=== PATIENT | male | born 1965 | race Caucasian/White ===

== ENCOUNTER → 2021-04-06 01:48 | Outpatient (CLI) | payer OTHER, SELFPAY ==
[2021-04-06 17:52] LABS: SARS-CoV-2 RNA PCR Negative
== END ==
PROVIDERS: PCP Family Medicine; Visit Provider Internal Medicine Gastroenterology
DX: Z01.812 Encounter for preprocedural laboratory examination (principal); Z20.822 Contact with and (suspected) exposure to COVID-19
CPT/HCPCS: C9803; U0003; U0005

== ENCOUNTER 2021-04-09 01:34 | Day surgery (SDC) | payer OTHER, SELFPAY ==
[2021-03-31 12:20] VITALS: BMI 36.4
[2021-04-09 07:39] VITALS: BP 134/98; PULSE 97; RESP 22; TEMP 36.3; O2SAT 98; BMI 36.2
[2021-04-09] MEDS: LACTATED RINGERS 1,000 ML 150 ML IV CONT (07:52)
[2021-04-09 07:55] LABS: Glucose Point of Care 164 mg/dl (65-105)
--- NOTE | 2021-04-09 08:11 | PM.HPGS ---
History of Present Illness History of Present Illness Consent: Risks, benefits, and alternatives have been discussed and questions answered. Patient agrees to proceed with procedure. Chief complaint: neoplasm screening Narrative: Keshawn Brown is a 55 year old male here for first screening colonoscopy Review of Systems Constitutional: Constitutional: Denies headache(s) and Denies weakness Eyes: Eyes: Denies blurry vision ENT: Reports Normal hearing present, Denies headache(s) and Denies neck pain Cardiovascular: Cardiovascular: Denies chest pain and Denies dyspnea Respiratory: Respiratory: Denies dyspnea Gastrointestinal: Gastrointestinal: Reports no additional gastrointestinal complaints Genitourinary: Genitourinary: Denies dysuria Musculoskeletal: Musculoskeletal: Denies neck pain Integumentary/Breasts: Skin/Breast: Denies dry skin Neurologic: Reports Normal hearing present, Denies headache(s) and Denies weakness Psychiatric: Psychiatric: Denies anxiety Endocrine: Endocrine: Denies change in body appearance Hematologic/Lymphatic: Hematologic/Lymphatic: Denies easy bleeding Allergic/Immunologic: Allergic/Immunologic: Denies urticaria PMFSH Past Medical History Medical History (Updated 01/05/21 @ 13:27 by Lyle Marquez MD) Acute bronchitis Acute non-recurrent maxillary sinusitis BMI 38.0-38.9,adult Chronic anxiety Chronic depression Colon cancer screening Elevated fasting glucose Encounter for prostate cancer screening Encounter for wellness examination in adult Erectile dysfunction History of hand fracture Hypersomnia Hypogonadism male Hypothyroidism, unspecified Mild intermittent asthma in adult without complication Mixed hyperlipidemia Morbid obesity with BMI of 40.0-44.9, adult Polycythemia (01/04/21) hemoglobin 18.5 with hematocrit 54.6 on 01/04/2021 likely due to testosterone replacement Primary hypertension Reactive airway disease with wheezing Seasonal allergies Type 2 diabetes mellitus with hyperglycemia (01/04/21) fasting glucose 293 with hemoglobin A1c 12.1 on 12/25/2020 Surgical History Surgical History (Updated 08/13/19 @ 13:14 by Francis Bautista CMA) Hx of cholecystectomy Hx of hand surgery Hx of knee surgery Family History Family History (Updated 08/13/19 @ 13:16 by Francis Bautista CMA) Father Cerebrovascular accident Mother Cerebrovascular accident Grandparent No problems noted. Social History Social History (Updated 12/31/20 @ 13:18 by Yana Hill MA) Smoking status: Never smoker Alcohol intake: current Drinks per week: 1 Alcohol use details: bourbon Substance use: never Substance use type: does not use Living arrangements: with family Spiritual care concerns: No Meds Home Medications and Allergies Home Medications Medication Instructions Recorded Confirmed Type albuterol sulfate 90 mcg/actuation 2 inhalation INHALATION QID PRN gm 10/10/19 03/31/21 History aerosol inhaler fluticasone propionate 50 1 spray NASAL BID #36.4 ml 10/10/19 03/31/21 Rx mcg/actuation nasal spray,suspension escitalopram oxalate 20 mg tablet 20 mg PO DAILY #90 tablet 07/13/20 03/31/21 Rx testosterone cypionate 200 mg/mL 200 mg IM WEEKLY #4 ml 12/21/20 03/31/21 Rx intramuscular oil sildenafil (pulm.hypertension) 20 See Rx Instructions PO ONCE PRN 12/31/20 03/31/21 Rx mg tablet #90 tablet empagliflozin 25 mg tablet 25 mg PO DAILY #30 tablet 01/05/21 03/31/21 Rx levothyroxine 175 mcg tablet 175 mcg PO DAILY #30 tablet 01/05/21 03/31/21 Rx metformin 500 mg tablet,extended 1,000 mg PO BID #120 tablet 01/05/21 03/31/21 Rx release 24hr lisinopril 40 mg tablet 40 mg PO DAILY #30 tablet 01/19/21 03/31/21 Rx atorvastatin 10 mg tablet 10 mg PO DAILY #30 tablet 03/02/21 03/31/21 Rx Allergies Allergy/AdvReac Type Severity Reaction Status Date / Time No Known Allergies Allergy Unknown Ve
[2021-04-09 08:34] VITALS: BP 119/80; PULSE 86; RESP 12; O2SAT 94
[2021-04-09 08:44] VITALS: BP 120/86; PULSE 86; RESP 12; O2SAT 96
[2021-04-09 08:54] VITALS: BP 122/91; PULSE 81; RESP 10; O2SAT 96
== END 2021-04-09 09:12 | disposition home or self-care (01) ==
PROVIDERS: PCP Family Medicine; Visit Provider Internal Medicine Gastroenterology
PROC: 0DJD8ZZ Inspection of Lower Intestinal Tract, Via Natural or Artificial Opening Endoscopic (ICD-10-PCS; CPT 45378; principal; 2021-04-09 08:30)
DX: Z12.11 Encounter for screening for malignant neoplasm of colon (principal); K64.8 Other hemorrhoids; K57.30 Diverticulosis of large intestine without perforation or abscess without bleeding; D12.2 Benign neoplasm of ascending colon; K62.1 Rectal polyp; Z79.84 Long term (current) use of oral hypoglycemic drugs; Z79.51 Long term (current) use of inhaled steroids; F41.8 Other specified anxiety disorders; G47.10 Hypersomnia, unspecified; E03.9 Hypothyroidism, unspecified; E78.2 Mixed hyperlipidemia; J45.909 Unspecified asthma, uncomplicated; D75.1 Secondary polycythemia; E11.65 Type 2 diabetes mellitus with hyperglycemia; E66.9 Obesity, unspecified; Z68.36 Body mass index [BMI] 36.0-36.9, adult
CPT/HCPCS: 45385; 82948; 88305; C9803; J2704; J7120; U0003; U0005

== ENCOUNTER 2024-01-26 20:30 | Emergency (ER) | payer OTHER, SELFPAY ==
[2024-01-26] VITALS (16 sets, daily range): BP systolic 132–152; BP diastolic 93–102; PULSE 112–123; RESP 12–26; O2SAT 93–96
--- NOTE | ~2024-01-26 | CT_ITS ---
EXAMINATION: CT brain wo con DATE: 01/26/2024 22:24 INDICATION: Diffuse right-sided pain post 8-10 foot fall from a ladder. TECHNIQUE: Computed tomography (CT) of the head was performed without intravenous contrast. Sagittal and coronal reconstructions were performed. The mA was adjusted according to patient size. Iterative reconstruction technique was employed. The dose-length product was 681.00 mGy-cm. COMPARISON: None FINDINGS: No fracture. No acute intracranial hemorrhage, acute infarction or abnormal extra axial fluid collect ion. There is mild scattered white matter hypoattenuation consistent with chronic small vessel ischem ic disease. Ventricles are normal and symmetric. No mass/mass effect. Mild to moderate mucosal thick ening the paranasal sinuses with small amount of dependently layering mucus in the left maxillary sin us. The orbits and mastoid air cells are normal. IMPRESSION: 1. No fracture or acute intracranial process. 2. Mild scattered white matter hypoattenuation consistent with chronic small vessel ischemic disease. 3. Sinus disease with small amount of bubbly mucus in the left maxillary sinus suggestive of acute si nusitis. Reviewed, dictated and finalized at location A. IMPRESSION: 1. No fracture or acute intracranial process. 2. Mild scattered white matter hypoattenuation consistent with chronic small ve ssel ischemic disease. 3. Sinus disease with small amount of bubbly mucus in the left maxillary sinus suggestive of acute sinusitis.
--- NOTE | ~2024-01-26 | CT_ITS ---
EXAMINATION: CT chst ab pel elisa reyna w DATE: 01/26/2024 22:26 INDICATION: Right-sided pain post fall from ladder TECHNIQUE: Computed tomography (CT) of the chest, abdomen, pelvis, thoracic and lumbar spine was perf ormed with 100 mL Omnipaque-350 intravenous contrast. Automated exposure control and iterative recons truction technique were employed. The dose-length product was 1444.15 mGy-cm. COMPARISON: None FINDINGS: Chest and thoracic spine CT: Minimal dependent atelectasis in both lungs. No pneumonia pulmonary edema or other pulmonary infiltra naresh. No pleural effusion or pneumothorax. Heart size is normal. Small amount of atherosclerotic coron lolly artery calcific lesion. No pericardial effusion. Thoracic aorta is normal in caliber with no diss ection or acute traumatic aortic injury. No pathologically enlarged thoracic lymphadenopathy. Mild up per thoracic levocurvature. Chronic appearing mild likely physiologic anterior wedging at T11 and T12 . Remaining vertebral body heights are normal. Disc heights are normal. No evident central canal sten osis. Minimal to mild multilevel thoracic facet osteoarthritis contributing to mild neural foraminal stenosis a few lower thoracic vertebral foramina. No acute fractures. Abdomen, pelvis and lumbar CT: Mild intrahepatic ductal or ductal dilation is within normal limits post cholecystectomy with surgica l clips the gallbladder fossa. Common bile duct remains normal in caliber. Several splenic calcificat ions consistent with old granulomatous disease. Pancreas, bilateral adrenal glands and kidneys are no rmal. There is prominent diverticulosis along the descending and sigmoid colon without adjacent infla mmatory change to suggest diverticulitis. Small bowel and appendix are normal. Bladder is normal. Pr ostatomegaly measuring 5.1 x 4.5 cm. Small fat-containing left inguinal hernia. Contusion with small subcutaneous hematoma at the lateral right buttock. No free intraperitoneal gas or fluid. No patholog ically enlarged abdominal or pelvic lymphadenopathy. Normal alignment of the lumbar spine with normal vertebral body heights. Mild disc height loss at L3-L4 with associated mild disc bulge and mild cent ral canal stenosis at this level. Multilevel mild lumbar facet osteoarthritis. There is mild bilatera l neural from stenosis at L3-L4 and L4-L5. No acute fractures. IMPRESSION: 1. Substandard contusion at the lateral right buttock. No acute fracture, avascular or visceral organ injury in the chest, abdomen or pelvis. 2. Diverticulosis. 3. Prostatomegaly. 4. Small fat-containing left inguinal hernia. Reviewed, dictated and finalized at location A. IMPRESSION: 1. Substandard contusion at the lateral right buttock. No acute fracture, avasc ular or visceral organ injury in the chest, abdomen or pelvis. 2. Diverticulosis. 3. Prostatomegaly. 4. Small fat-containing left inguinal hernia.
--- NOTE | ~2024-01-26 | CT_ITS ---
EXAMINATION: CT cervical spine wo con DATE: 01/26/2024 22:24 INDICATION: Fall from ladder with diffuse pain throughout the right side of the body. TECHNIQUE: Computed tomography (CT) of the cervical spine was performed without intravenous contrast. Automated exposure control and iterative reconstruction technique were employed. The dose-length pro duct was 572.21 mGy-cm. COMPARISON: None FINDINGS: Alignment is normal. Vertebral body heights are normal. No acute fracture. Mild disc height loss at C 3-C4 and C5-C6. Disc bulge and small amount of heterotopic ossification along the posterior longitudi nal ligament results in mild central canal stenosis at C4-C5. Multilevel uncovertebral osteoarthritis , moderate on the right at C2-C3 and and C6-C7, on the left at C5-C6 and otherwise mild. There is als o multilevel cervical facet osteoarthritis, moderate to severe on the right at C7-T1 and otherwise mi ld. There is mild to moderate neural foraminal stenosis on the left at C4-C5 and on the right at C6-C 7. Mild neural from stenosis on the right at both C4-C5 and on the left at C3-C4 and C6-C7. Mild dyst rophic calcification is at the bilateral lingual tonsils. Cervical soft tissues are unremarkable. IMPRESSION: 1. Mild cervical spondylosis with no acute osseous abnormality. Reviewed, dictated and finalized at location A.
[2024-01-26] MEDS: MORPHINE SULFATE (*CRX) 4 MG/ML INJ IV PUSH (21:11)
[2024-01-26 21:20] LABS: Basophils Absolute Auto 0.1 K/mm3 (0.0-0.1); Basophils Percent Auto 0.6 % (0.2-1.2); Eosinophils Absolute Auto 0.2 K/mm3 (0-0.3); Eosinophils Percent Auto 0.9 % (0-4.4); Hematocrit 58.3 % (42.0-52.0); Hemoglobin 19.9 g/dL (14.0-18.0); Immature Granulocyte Absolute 0.12 K/mm3 (0.00-0.031); Immature Granulocyte Percent A 0.7 % (0-0.5); Lymphocytes Absolute Auto 1.48 K/mm3 (0.9-3.2); Lymphocytes Percent Auto 8.7 % (18.3-44.2); Mean Corpuscular HGB Conc 34.1 g/dl (32-36); Mean Corpuscular Hemoglobin 30.2 pg (26-34); Mean Corpuscular Volume 88.5 fl (80-100); Mean Platelet Volume 10.6 fl (7.4-10.4); Monocytes Absolute Auto 0.7 K/mm3 (0.1-0.6); Monocytes Percent Auto 4.1 % (2.6-8.5); Neutrophils Absolute Auto 14.5 K/mm3 (1.3-6.7); Platelet Count Result 239 k/mm3 (150-375); Red Blood Count 6.59 M/mm3 (4.6-6.20); Red Cell Distribution Width 13.6 % (11.5-14.5); White Blood Count 17.1 K/mm3 (4.5-10.0)
[2024-01-26 21:28] LABS: Alanine Aminotransferase 37 U/L (6-50); Albumin Level 4.8 g/dL (3.5-5.1); Alkaline Phosphatase 57 U/L (38-126); Anion Gap 7 mmol/L (4-12); Aspartate Amino Transferase 37 U/L (17-59); Bilirubin,Total 1.2 mg/dL (0.2-1.3); Blood Urea Nitrogen 14 mg/dL (9-20); Calcium 9.4 mg/dL (8.4-10.2); Carbon Dioxide 27 mmol/L (22-30); Chloride 102 mmol/L (98-107); Estimated Glomerular Filt Rate 57; Glucose 183 mg/dL (65-110); Potassium 4.6 mmol/L (3.4-5.0); Prothrombin Time 13.2 Seconds (11.1-14.7); Sodium 136 mmol/L (137-145)
[2024-01-26 21:29] LABS: Partial Thromboplastin Time 25.8 Seconds (22.3-36.8)
--- NOTE | 2024-01-26 21:46 | PC.NURSE ---
Pt taken to CT via stretcher at this time.
[2024-01-26] MEDS: KETOROLAC 15 MG/ML VIAL (*BKC) IV PUSH (22:57)
--- NOTE | 2024-01-26 22:57 | ED.FALL ---
HPI - Fall General Chief Complaint: Fall Stated Complaint: fell off a ladder about 8 foot onto right side Time Seen by Provider: 01/26/24 20:38 Source: patient Mode of arrival: ambulatory Limitations: no limitations History of Present Illness HPI Narrative: This is a 58 year old male that presents to the ER after a fall about 8-10 feet off of a ladder. Reports he was cutting branches on a tree, one hit the bottom of the ladder causing it to fall. He fell onto his right side. Reports right flank and low back pain. He does not believe he hit his head. He did not lose consciousness. Denies shortness of breath, numbness or weakness. Related Data Allergies Allergy/AdvReac Type Severity Reaction Status Date / Time ondansetron [From Zofran] AdvReac Nausea and Verified 01/26/24 21:23 Vomiting Review of Systems Review of Systems: CONSTITUTIONAL: Denies fever CARDIOVASCULAR: Denies chest pain RESPIRATORY: Denies dyspnea. GASTROINTESTINAL: Denies vomiting MUSCULOSKELETAL: Reports back pain, joint pain, and myalgia. NEUROLOGIC: Denies numbness, or weakness. All systems reviewed & are unremarkable except as noted in HPI and below PMFSH Past Medical History Medical History (Updated 01/27/24 @ 00:00 by Dione Lucero PA-C) Acute bronchitis Acute non-recurrent maxillary sinusitis BMI 36.0-36.9,adult BMI 38.0-38.9,adult Chronic anxiety Chronic depression Colon cancer screening COVID-19 (09/12/22) tested positive at home on 09/13/2022. Encounter for prostate cancer screening PSA 0.77 on 04/22/2022. Encounter for wellness examination in adult Erectile dysfunction History of hand fracture Hypersomnia Hypogonadism male Total testosterone 1086 with free testosterone elevated at 322 on 04/22/2022. Hypothyroidism, unspecified TSH 2.52 with free T4 1.3 on 04/22/2022. Mild intermittent asthma in adult without complication Mixed hyperlipidemia Total cholesterol 155, triglycerides 236, HDL 41, LDL 81 on 04/22/2022. Morbid obesity with BMI of 40.0-44.9, adult Obesity (BMI 30-39.9) Polycythemia (01/04/21) hemoglobin 18.5 with hematocrit 54.6 on 01/04/2021 likely due to testosterone replacement. Hemoglobin 19.1 on 04/22/2022 Polyp of colon (04/09/21) 2 3 mm polyps and 1 8 mm polyp on 04/09/[address] Mazariegos. Recheck in 5 years. Primary hypertension Seasonal allergies Type 2 diabetes mellitus with hyperglycemia (01/04/21) fasting glucose 293 with hemoglobin A1c 12.1 on 12/25/2020.Fasting glucose 197 with hemoglobin A1c 10.5 on 04/22/2022. Surgical History Surgical History (System 06/29/23 @ 12:22 by Jostin Nowak) Hx of cholecystectomy Hx of hand surgery Hx of knee surgery Family History Family History Father Cerebrovascular accident Mother Cerebrovascular accident Grandparent No problems noted. Social History Social History (System 06/29/23 @ 12:22 by Jostin Nowak) Smoking status: Never smoker Alcohol intake: current Drinks per week: 1 Alcohol use details: bourbon Substance use: never Substance use type: does not use Lack of Transportation: No Lack of Food: Never True Current Housing: I Have Housing Concerned About Future Housing: No Difficulty Paying Gas/Electric Bills: No Difficulty Paying for Meds: No Currently Unemployed: No Education: Bachelor's Degree Difficulty w/ Childcare or Family Care: No Living arrangements: with family Spiritual care concerns: No Exam Narrative: GENERAL: Well-appearing, well-nourished, and in no acute distress. HEAD: Normocephalic, atraumatic. EYES: PERRLA and EOMI. ENT: Nares clear, no rhinorrhea or epistaxis. Mucous membranes moist. Oropharynx without tonsillar hypertrophy exudate or other lesions. Bilateral TMs pearly perez non-bulging NECK: Supple. No adenopathy or masses. CHEST: Clear to auscultation. No respiratory distress. No wheeze
[2024-01-27 00:15] VITALS: PULSE 116; RESP 20; TEMP 37.1; O2SAT 97
== END 2024-01-27 00:16 | disposition home or self-care (01) ==
PROVIDERS: Emergency Provider Physician Assistant; PCP Family Medicine
DX: S30.0XXA Contusion of lower back and pelvis, initial encounter (principal); I10 Essential (primary) hypertension; E11.9 Type 2 diabetes mellitus without complications; E03.9 Hypothyroidism, unspecified; E78.2 Mixed hyperlipidemia; E66.01 Morbid (severe) obesity due to excess calories; J45.20 Mild intermittent asthma, uncomplicated; Z86.010 Personal history of colon polyps; Z86.16 Personal history of COVID-19; Z90.49 Acquired absence of other specified parts of digestive tract; Z79.85 Long-term (current) use of injectable non-insulin antidiabetic drugs; Z79.84 Long term (current) use of oral hypoglycemic drugs; M47.812 Spondylosis without myelopathy or radiculopathy, cervical region; K40.90 Unilateral inguinal hernia, without obstruction or gangrene, not specified as recurrent; N40.0 Benign prostatic hyperplasia without lower urinary tract symptoms; K57.90 Diverticulosis of intestine, part unspecified, without perforation or abscess without bleeding; J32.9 Chronic sinusitis, unspecified; W11.XXXA Fall on and from ladder, initial encounter; Y93.H9 Activity, other involving exterior property and land maintenance, building and construction
CPT/HCPCS: 36415; 70450; 71260; 72125; 72129; 72132; 74177; 80053; 85025; 85610; 85730; 96374; 96375; 99284; J1885; J2270; J2405; Q9967

== ENCOUNTER 2024-12-04 08:23 | Outpatient (CLI) | payer OTHER, SELFPAY ==
--- NOTE | 2024-12-24 10:12 | P.SLEEP_ITS ---
Sleep Study - Home Unattended Date of Study: 12/04/24 Ordering Provider: Lyle Marquez MD Interpreting Provider: Magda Cueto DO Home Sleep Study Type: Watch PAT Height: 1.73 m Weight: 104.326 kg Body Mass Index: 34.9 Neck Circumference (inches): 18 [place]: 0 Reason for Sleep Study Non-restorative sleep Sleep History The patient is a 59-year-old male that had a sleep study ordered by his primary care physician due to non restorative sleep. The patient did not complete the sleep history questionnaire. [facility] Past Medical History Medical History BMI 35.0-35.9,adult Acute right-sided low back pain without sciatica (01/26/24) fell off of ladder 8 ft 01/26/2024. BMI 36.0-36.9,adult Obesity (BMI 30-39.9) COVID-19 (09/12/22) tested positive at home on 09/13/2022. Polyp of colon (04/09/21) 2 3 mm polyps and 1 8 mm polyp on 04/09/[address] Mazariegos. Recheck in 5 years. Type 2 diabetes mellitus with hyperglycemia (01/04/21) fasting glucose 293 with hemoglobin A1c 12.1 on 12/25/2020.Fasting glucose 197 with hemoglobin A1c 10.5 on 04/22/2022. Glucose 182, hemoglobin A1c 9.3, urine microalbumin ratio of 4 with GFR 70 on 09/05/2024. Polycythemia (01/04/21) hemoglobin 18.5 with hematocrit 54.6 on 01/04/2021 likely due to testosterone replacement. Hemoglobin 19.1 on 04/22/2022. hemoglobin 19.9 on 01/26/2024. Hemoglobin 20.0 with hematocrit 58.9 on 09/05/2024. BMI 38.0-38.9,adult Hypogonadism male Total testosterone 1086 with free testosterone elevated at 322 on 04/22/2022. Total testosterone 969 with free testosterone elevated at 205.9 on 09/05/2024. Mild intermittent asthma in adult without complication Acute bronchitis Acute non-recurrent maxillary sinusitis Encounter for prostate cancer screening PSA 0.77 on 04/22/2022. Encounter for wellness examination in adult History of hand fracture Morbid obesity with BMI of 40.0-44.9, adult Hypersomnia Colon cancer screening Primary hypertension Hypothyroidism, unspecified TSH 2.52 with free T4 1.3 on 04/22/2022. TSH elevated at 5.72 with free T4 normal at 1.2 on 09/05/2024. Mixed hyperlipidemia Total cholesterol 155, triglycerides 236, HDL 41, LDL 81 on 04/22/2022. Cholesterol 184, triglycerides 264, HDL 42, LDL 105 with ratio 4.4 on 09/05/2024. Chronic anxiety Chronic depression Erectile dysfunction Seasonal allergies Surgical History Surgical History Hx of hand surgery Hx of knee surgery Hx of cholecystectomy Family History Family History Father Cerebrovascular accident Mother Cerebrovascular accident Grandparent No problems noted. Mother Cerebrovascular accident, Onset Age: 63 Father Cerebrovascular accident, Onset Age: 68 Social History Social History Smoking status: Never smoker Alcohol intake: current Drinks per week: 1 Alcohol use details: bourbon Substance use: never Substance use type: does not use Lack of Transportation: No Lack of Food: Never True Current Housing: I Have Housing Concerned About Future Housing: No Difficulty Paying Gas/Electric Bills: No Difficulty Paying for Meds: No Currently Unemployed: No Education: Bachelor's Degree Difficulty w/ Childcare or Family Care: No Living arrangements: with family Spiritual care concerns: No Medications Home Medications ?Medication ?Instructions ?Recorded ?Confirmed ?Type sildenafil (pulm.hypertension) 20 See Rx Instructions PO ONCE PRN 12/31/20 09/05/24 Rx mg tablet sexual activity #90 tabs fluticasone propionate 50 1 spray intranasal BID #36.4 mL 08/05/21 09/05/24 Rx mcg/actuation nasal spray,suspension cyclobenzaprine 10 mg tablet 10 mg PO TID PRN muscle spasm #14 01/27/24 09/05/24 Rx tabs ketorolac 10 mg tablet 10 mg PO Q8H PRN pain #14 tabs 01/27/24 09/05/24 Rx atorvastatin 10 mg tablet 10 mg PO DAILY #30 tabs 03/12/24 09/05/24 Rx albuterol sulfate 90 mcg/actuation 2 inh inhalation QID PRN shortness 08/27/24 09/05/24 Rx aerosol inhaler of breath #8.5 grams escitalopram oxalate 20 mg tablet 20 mg PO DAILY #30 tabs 08/27/24 09/05/24 Rx (Lexapro) lisinopril 40 mg tablet 40 mg PO DAILY #30 tabs 09/09/24 Rx dulaglutide 4.5 mg/0.5 mL 4.5 mg (0.5 mL) subcut WEEKLY #2 mL 09/12/24 Rx subcutaneous pen injector (Trulicity) levothyroxine 200 mcg tablet 200 mcg PO . q.a.m. #90 tabs 09/12/24 Rx testosterone cypionate 200 mg/mL 100 mg (0.5 mL) IM WEEKLY #4 mL 10/16/24 Rx intramuscular oil empagliflozin 25 mg tablet 25 mg PO DAILY #30 tabs 11/25/24 Rx (Jardiance) Sleep Procedure The sleep study was completed using SmappoT a technically adequate device with seven channels: peripheral arterial tone, actigraphy, body position, snore, respiratory movement, pulse oximetry, sleep staging, and heart rate. Prior to using the device, the patient received verbal and written instructions for its application and was provided with the help desk phone number for additional telephonic instruction with 24-hour availability of qualified personnel to answer questions. The study was scored using CMS guidelines. Sleep Architecture The total recording time is 8 hrs, 27 min. The total sleep time is 7 hrs, 31 min. Sleep latency is 21 minutes. REM latency is 86 minutes. The patient had 8 episodes of waking. Sleep architecture shows 17.3% deep sleep, 61.6% light sleep, and (as % Total Sleep Time) showed NREM (Light 61.6%; Deep 17.3%), and a 21.1% stage REM. The patient spent 33.3% of total sleep time in the supine position. Sleep efficiency was 88.95. Respiratory Analysis The overall AHI (pAHI 4%:) is 6.1. The overall AHI (pAHI 3%:) is 13.6. The central AHI is 0.1. The AHI was 9.5 in NREM and 28.6 in REM sleep. The AHI was 8.8 in Supine and 16.0 in Non-supine sleep. Percent of Khanh Gerber respirations is 0.0. Oximetry Data The oxygen desaturation index (ARMAAN 4%:) is 6.4. The mean saturation is 91%, and the lowest saturation is 84%. Time spent with saturation < 88% is 10.5 minutes. Snoring Profile Snoring average intensity is 42 dB. The patient snored above 45 decibels for 52.4 minutes, 11.6% of sleep time. Cardiac Profile The average pulse rate is 88 beats per minutes. The lowest pulse rate is 71 bpm. The highest pulse rate reported is 113 bpm. Atrial fibrillation was not detected . Premature beats occur 1.0 per minute. Assessment and Plan Assessment and Plan (1) ILDA (obstructive sleep apnea): Code(s): G47.33 - Obstructive sleep apnea (adult) (pediatric) Status: Acute Assessment and Plan: The patient had an overall AHI 6.1 with desaturation down to 84%. This is consistent with mild sleep apnea. Due to the patient's hypertension, he qualifies for treatment. I recommend that the patient be prescribed Resmed AirSense 11 AutoPAP 5-15 cm H2O, CPAP mask/filters/tubing and heated humidity. A mandibular advancement device is also an acceptable treatment option. This should be used with all episodes of sleep.? Compliance should be reviewed within 31-90 days of starting therapy for usage greater than 4 hours per night greater than 70% of the nights. The patient should be asked about symptoms such as?excessive daytime sleepiness, quality of sleep, decreased nocturia, increased?mental functioning such as memory, mood, and concentration. Data The data obtained during this sleep study is adequate for interpretation. Certification This sleep study has been reviewed by a board certified sleep medicine physician.
[2024-12-24 10:28] VITALS: BMI 34.9
== END 2024-12-05 11:27 | disposition home or self-care (01) ==
LOC: ANHCSM 08:24
PROVIDERS: PCP Family Medicine; Visit Provider Family Medicine
DX: G47.10 Hypersomnia, unspecified (principal); G47.33 Obstructive sleep apnea (adult) (pediatric)
CPT/HCPCS: 95800